=== PATIENT | male | born 1935 | race Caucasian/White ===

== ENCOUNTER → 2016-08-07 | Outpatient (CLI) | payer OTHER ==
[~2016-08-07] MED LIST: IBUP-1428 PO; PRLSR20 PO
--- NOTE | 2016-08-07 09:36 | DIAGNOSTIC IMAGING REPORT ---
FUSION CT SINUSES W/O HISTORY: R51 BmatqkipA10.9 Chronic chsbofcocO16.81 Nasal rguaulcvnyP26.0 TECHNIQUE: Multiaxial CT images of the sinuses were performed and reformatted in the coronal plane without intravenous contrast. Fusion CT protocol was also obtained. COMPARISON STUDY: None. FINDINGS: The frontal sinuses are clear. Partial opacification of the bilateral ethmoid air cells, right greater than left. Mild mucosal thickening within the bilateral sphenoid sinuses. There is a dominant left sphenoid sinus and a hypoplastic right sphenoid sinus. No evidence for carotid canal dehiscence. The lamina papyracea and orbital floors are intact. There is moderate mucosal thickening within the floor of the left maxillary sinus with a 1.7 cm retention cyst. There is mild mucosal thickening within the right maxillary sinus with a 1.3 cm retention cyst. The mastoid air cells are clear. No fluid levels within the paranasal sinuses. Bilateral ostiomeatal units are patent. The right ethmoid roof is approximately 2 mm lower than the left ethmoid roof. The cribriform plates are essentially symmetric. Visualized brain parenchyma and orbits are unremarkable. Pterygopalatine fossa are intact. IMPRESSION: 1. Mild/moderate chronic sinus disease as described above most pronounced at the bilateral mastoid air cells. 2. No fluid levels within the paranasal sinuses. Electronically signed by: Az Costa M.D. 08/07/2016 9:34 AM Dictated Date/Time: 08/07/2016 9:17 AM
== END | disposition home or self-care (01) ==
LOC: C.CTS 08:38
PROVIDERS: ATTEND Hospitalist
DX: J31.0 Chronic rhinitis (principal); J32.9 Chronic sinusitis, unspecified; R09.81 Nasal congestion; R51 Headache

== ENCOUNTER → 2016-08-18 | Outpatient (CLI) | payer OTHER ==
[2016-08-18 13:28] LABS: BASO % 1.1 %; BASO ABS # 0.06 K/uL (0-0.2); COMPLETE YES; EOS % 2.3 %; HEMATOCRIT 45.4 % (42-52); LYMPH % 31.7 %; LYMPH ABS # 1.78 K/uL (1.2-3.4); MEAN CELL VOLUME 88.3 fL (80-100); MEAN CORPUSCULAR HEMOGLOBIN 31.3 pg (25-34); MEAN CORPUSCULAR HGB CONC 35.5 g/dl (32-36); MEAN PLATELET VOLUME 9.4 fL (7.4-10.4); MONO % 7.5 %; NEUT % 57.4 %; PLATELET COUNT 167 K/uL (130-400); RED BLOOD COUNT 5.14 M/uL (4.7-6.1); WHITE BLOOD COUNT 5.62 K/uL (4.8-10.8)
[2016-08-18 13:31] LABS: PROTHROMBIN TIME (PATIENT) 10.6 SECONDS (9.0-12.0)
[2016-08-18 13:33] LABS: POTASSIUM 4.4 mmol/L (3.5-5.1)
== END | disposition home or self-care (01) ==
LOC: C.LABMFLN 08:38
DX: Z01.818 Encounter for other preprocedural examination (principal)

== ENCOUNTER → 2016-08-21 | Day surgery (SDC) | payer OTHER ==
[2016-08-17 14:03] VITALS: Ht 182.9 cm; Wt 94.1 kg
[~2016-08-21] VITALS: Ht 182.9 cm; Wt 94.1 kg
[~2016-08-21] MED LIST changes: +ATROPINE SULFATE 0.1 MG/ML 5ML SYR IV PRN; +CEFAZOLIN 2000 MG/60 ML D5W IV SCH; +DEXAMETHASONE SOD INJ 4 MG/ML VIAL ONE; +EpHEDrine SULFATE INJ 50 MG/ML AMP IV PRN; +EpINEphrine INJ 1MG/ML AMP 1 MG/ML AMP ONE; +FENTANYL CITRATE INJ 50 MCG/1 ML 2 ML VIAL IV PRN; +FENTANYL CITRATE INJ 50 MCG/1 ML 2 ML VIAL ONE; +FLUMAZENIL 0.1 MG/1 ML 10 ML VIAL IV PRN; +GLYCOPYRROLATE INJ 0.2 MG/ML VIAL ONE; +HYDROCODONE/ACETAMOPHEN 5/325MG TAB PO PRN; +LABETALOL HCL IV 5 MG/ML 20ML IV PRN; +LACTATED RINGER'S 1000ML 1,000 ML IV SCH; +LIDOCAINE 4% MPF SOAK 5 ML = 1 DOSE TOP ONE; +LIDOCAINE HCL 2% 2 ML VIAL (20MG/ML) ONE; +LIDOCAINE/EPINEPHRINE 1% INJ 50 ML VIAL ONE; +NALOXONE HCL 0.4 MG/1 ML VIAL/CARP IV PRN; +NEOSTIGMINE METHYLSULFATE 5 MG/5 ML SYR ONE; +ONDANSETRON INJ 2 MG/ML 2 ML VIAL IV PRN; +ONDANSETRON INJ 2 MG/ML 2 ML VIAL ONE; +OXYMETAZOLINE HCL 0.05% NA SPR 15 ML BTL ONE; +OXYMETAZOLINE HCL 0.05% NA SPR 15 ML BTL PRN; +PROMETHAZINE HCL INJ 12.5 MG in SODIUM CHLORIDE 0.9% 50ML 50 ML IV PRN; +ROCURONIUM BROMIDE 10 MG/ML 5 ML VIAL ONE
--- NOTE | 2016-08-21 08:36 | History & Physical Bridge - [place] ---
H&P Re-Evaluation Bridge Note: I have examined the patient, reviewed the History & Physical and in the interval since the performance of the History & Physical I have noted the following changes of clinical significance: No changes noted
--- NOTE | 2016-08-21 10:01 | [facility] Operative Report ---
Operative Report Operative Date Aug 21, 2016. Pre-Operative Diagnosis Chronic Sinusitis, Nasal Septal Deviation, Hypertrophy of Nasal Turbinates Post-Operative Diagnosis Same Procedure(s) Performed Image-Guided Bilateral Endoscopic Sinus Surgery, Bilateral Inferior Turbinate Outfracture And Turbinoplasty Surgeon Dr. Johns Department Mgr Surgeon(s) None Estimated Blood Loss 25 mL Findings 1. POLYPOID MUCOSAL THICKENING B MAX/ETHMOID/SPHENOID SINUSES WITH PURULENCE WITHIN R POSTERIOR ETHMOID SINUSES 2. NON-OBSTRUCTIVE L DNS 3. B ITH Specimens None I attest to the content of the Intraoperative Record and any orders documented therein. Any exceptions are noted below.
--- NOTE | 2016-08-21 10:04 | Discharge Instructions ---
Discharge Instructions Admission Reason for Admission: Chronic Sinusitis, Nasal Septal Deviation, Hypertr Discharge Discharge Diagnosis / Problem: SAME Discharge Goals Goal(s): Improve function Activity Recommendations Activity Limitations: as noted below 1. LIGHT ACTIVITY FOR 2WEEKS 2. NO NOSE BLOWING FOR 2WEEKS 3. NO DRIVING WHILE ON NARCOTICS . Current Hospital Diet Patient's current hospital diet: Discharge Diet Recommended Diet: Regular Diet Procedures Procedures Performed: Image-Guided Bilateral Endoscopic Sinus Surgery, Bilateral Inferior Turbinate Outfracture And Turbinoplasty Pending Studies Studies pending at discharge: no Medical Emergencies . Who to Call and When: Medical Emergencies: If at any time you feel your situation is an emergency, please call 911 immediately. . Non-Emergent Contact Non-Emergency issues call your: Surgeon . . "Provider Documentation" section prepared by Dennis Johns. VTE Core Measure Inpt VTE Proph given/why not?: SCD's
[2016-08-21 10:55] VITALS: TEMP 36.4
--- NOTE | 2016-08-21 11:20 | Anesthesia Progress Nt - [facility] ---
Anesthesia Post Op Note Date & Time Aug 21, 2016 at 11:20 Vital Signs Pain Intensity: 0 Vital Signs Past 12 Hours Date Time Temp Pulse Resp B/P Pulse Ox O2 Delivery O2 Flow Rate FiO2 08/21/16 10:55 36.4 72 16 157/82 94 Room Air 08/21/16 10:44 69 12 94 08/21/16 10:44 69 12 08/21/16 10:43 175/79 08/21/16 10:39 66 16 94 08/21/16 10:39 66 16 08/21/16 10:38 154/81 08/21/16 10:37 36.8 20 167/78 96 Room Air 08/21/16 10:34 64 12 98 08/21/16 10:34 64 12 08/21/16 10:33 167/78 08/21/16 10:30 64 12 97 08/21/16 10:30 65 12 08/21/16 10:28 164/81 08/21/16 10:28 164/81 08/21/16 10:25 67 15 08/21/16 10:25 67 15 08/21/16 10:25 67 15 94 08/21/16 10:25 67 15 94 08/21/16 10:23 153/79 08/21/16 10:23 153/79 08/21/16 10:20 66 14 08/21/16 10:20 66 14 99 08/21/16 10:20 66 14 08/21/16 10:20 66 14 99 08/21/16 10:18 172/78 08/21/16 10:18 172/78 08/21/16 10:15 72 17 08/21/16 10:15 72 17 08/21/16 10:15 78 17 99 08/21/16 10:15 78 17 99 08/21/16 10:13 158/82 08/21/16 10:13 158/82 08/21/16 10:10 66 13 08/21/16 10:10 66 13 97 08/21/16 10:10 66 13 97 08/21/16 10:10 66 13 08/21/16 10:08 166/80 08/21/16 10:08 166/80 08/21/16 10:05 68 9 08/21/16 10:05 68 9 160/76 98 08/21/16 10:05 36.4 68 16 160/76 98 Humidified Oxygen 6 Diffusion Mask 08/21/16 10:05 68 9 08/21/16 10:05 68 9 160/76 98 08/21/16 08:14 36.7 67 16 149/69 96 Room Air Notes Mental Status: alert / awake / arousable, participated in evaluation Pt Amnestic to Procedure: Yes Nausea / Vomiting: adequately controlled Pain: adequately controlled Airway Patency, RR, SpO2: stable & adequate BP & HR: stable & adequate Hydration State: stable & adequate Anesthetic Complications: no major complications apparent
--- NOTE | 2016-08-21 11:23 | OPERATIVE REPORT ---
DATE OF OPERATION: 08/21/2016 PREOPERATIVE AND POSTOPERATIVE DIAGNOSES: 1. Chronic sinusitis. 2. Bilateral inferior turbinate hypertrophy. PROCEDURES: Hand Talk fusion image-guided bilateral functional endoscopic sinus surgery consisting of: 1. Bilateral maxillary antrostomies. 2. Bilateral complete ethmoidectomies. 3. Bilateral sphenoidotomies. 4. Right frontal sinusotomy. 5. Bilateral inferior turbinate outfracture and turbinoplasties. SURGEON: Dr. Johns. ANESTHESIA: General endotracheal. ESTIMATED BLOOD LOSS: 25 mL. FINDINGS: 1. Polypoid mucosal thickening involving the bilateral maxillary, ethmoid and sphenoid sinuses as well as the right frontal sinus. 2. Purulence within the right posterior ethmoid sinus. 3. Bilateral inferior turbinate hypertrophy. 4. Very mild left anterior septal deviation, which was nonobstructive. SPECIMENS: None. COMPLICATIONS: None. INDICATIONS: The patient is a 80-year-old male with the above-mentioned history, which has been unresponsive to maximum medical therapy including systemic antibiotics and steroids. He presents for the above-mentioned procedures on an outpatient elective basis. DETAILS OF PROCEDURE: After informed consent had been obtained from the patient, the patient was wheeled to the operating room and placed on the operating table in the supine position. Monitors were placed. After induction of general endotracheal anesthesia the patient was prepped in the usual fashion for image-guided endoscopic sinus surgery. The Hand Talk fusion navigation headset was placed over the forehead and was registered, calibrated and verified and used throughout the case. Lidocaine and epinephrine pledgets were placed in the bilateral nasal cavities and pressure applied. After allowing adequate time for vasoconstriction and anesthesia the left-sided pledgets were removed and a Tipton elevator was used to medialize the left middle turbinate. The middle turbinate and lateral nasal wall were injected with 1% lidocaine with 1:100,000 epinephrine. Lidocaine and epinephrine pledget was then placed into the left middle meatus. The right side was then addressed in a similar fashion. The left-sided pledgets were removed and a Tipton elevator was used to incise the uncinate process and the uncinate process was removed using straight Marvel-Cut forceps and powered instrumentation. The natural ostia of the left maxillary sinus was identified and this was enlarged anteriorly, inferiorly, and posteriorly using backbiting forceps and powered instrumentation. A complete ethmoidectomy was then performed using powered instrumentation. Using a transnasal approach to the sphenoid sinus, the left sphenoid sinus was entered and the natural ostia was enlarged medially and inferiorly using powered instrumentation. Of note, there was polypoid mucosal thickening involving the left maxillary, ethmoid and sphenoid sinuses. On the CT scan, the left frontal sinus was normal and therefore this was left undisturbed. Lidocaine and epinephrine pledget was then placed into the left ethmoid sinus. The right side was then addressed. This was addressed in a similar fashion as described on the left-hand side with intraoperative findings of polypoid mucosal thickening involving all the paranasal sinuses, but purulence within the posterior ethmoid air cells. Using a curved frontal sinus suction, the right frontal sinus was cannulated and initially a #6 frontal sinus balloon was inserted, but this was difficult to insert in the same fashion as the curved frontal sinus suction and therefore it was not inflated. Rather using powered instrumentation polypoid tissue was removed from the right frontal recess in order to perform a right frontal sinusotomy. The septum was then inspected. There was a small amount of left-sided septal deviation anteriorly, which was thought to be nonobstructive and therefore septoplasty was not performed. A Ha elevator was used to infracture and subsequently outfracture the inferior turbinates bilaterally. The inferior turbinates were injected with 1% lidocaine with 1:100,000 epinephrine. Using a 2.0 mm turbinate blade and powered instrumentation, bilateral inferior turbinoplasties were performed. The sinonasal cavities were then suctioned. Merogel was then placed in the bilateral ethmoid cavity/middle meati. An orogastric tube was placed and the stomach was suctioned free of air and stomach contents. This marked the end of the case. The patient tolerated the procedure well and there are no apparent complications. The patient was extubated and transferred to the recovery room in stable condition. I attest to the content of the Intraoperative Record and any orders documented therein. Any exceptio ns are noted below.
[2016-08-21 11:32] VITALS: BP 160/88; PULSE 67; O2SAT 94
== END | disposition home or self-care (01) ==
LOC: X.SURG 07:48
DX: J32.9 Chronic sinusitis, unspecified (principal); J34.3 Hypertrophy of nasal turbinates; J34.2 Deviated nasal septum; I10 Essential (primary) hypertension; Z98.890 Other specified postprocedural states

== ENCOUNTER → 2017-04-27 | Outpatient (CLI) | payer OTHER ==
[~2017-04-27] MED LIST changes: -ATROPINE SULFATE 0.1 MG/ML 5ML SYR IV PRN; -CEFAZOLIN 2000 MG/60 ML D5W IV SCH; -DEXAMETHASONE SOD INJ 4 MG/ML VIAL ONE; -EpHEDrine SULFATE INJ 50 MG/ML AMP IV PRN; -EpINEphrine INJ 1MG/ML AMP 1 MG/ML AMP ONE; -FENTANYL CITRATE INJ 50 MCG/1 ML 2 ML VIAL IV PRN; -FENTANYL CITRATE INJ 50 MCG/1 ML 2 ML VIAL ONE; -FLUMAZENIL 0.1 MG/1 ML 10 ML VIAL IV PRN; -GLYCOPYRROLATE INJ 0.2 MG/ML VIAL ONE; -HYDROCODONE/ACETAMOPHEN 5/325MG TAB PO PRN; -IBUP-1428 PO; -LABETALOL HCL IV 5 MG/ML 20ML IV PRN; -LACTATED RINGER'S 1000ML 1,000 ML IV SCH; -LIDOCAINE 4% MPF SOAK 5 ML = 1 DOSE TOP ONE; -LIDOCAINE HCL 2% 2 ML VIAL (20MG/ML) ONE; -LIDOCAINE/EPINEPHRINE 1% INJ 50 ML VIAL ONE; -NALOXONE HCL 0.4 MG/1 ML VIAL/CARP IV PRN; -NEOSTIGMINE METHYLSULFATE 5 MG/5 ML SYR ONE; -ONDANSETRON INJ 2 MG/ML 2 ML VIAL IV PRN; -ONDANSETRON INJ 2 MG/ML 2 ML VIAL ONE; -OXYMETAZOLINE HCL 0.05% NA SPR 15 ML BTL ONE; -OXYMETAZOLINE HCL 0.05% NA SPR 15 ML BTL PRN; -PROMETHAZINE HCL INJ 12.5 MG in SODIUM CHLORIDE 0.9% 50ML 50 ML IV PRN; -ROCURONIUM BROMIDE 10 MG/ML 5 ML VIAL ONE
[2017-04-27 17:46] LABS: BLOOD UREA NITROGEN 19 mg/dl (7-18); BUN/CREATININE RATIO 13.3 (10-20); CALCIUM 8.5 mg/dl (8.5-10.1); CARBON DIOXIDE 27 mmol/L (21-32); CHLORIDE 110 mmol/L (98-107); GLUCOSE 95 mg/dl (70-99); POTASSIUM 4.6 mmol/L (3.5-5.1); SODIUM 142 mmol/L (136-145)
== END | disposition home or self-care (01) ==
LOC: C.LABMFLN 11:53
PROVIDERS: ATTEND Family Medicine
DX: I10 Essential (primary) hypertension (principal)

== ENCOUNTER → 2018-02-25 | Outpatient (CLI) | payer OTHER ==
[2018-02-25 18:30] LABS: BLOOD UREA NITROGEN 18 mg/dl (7-18); CALCIUM 8.2 mg/dl (8.5-10.1); CARBON DIOXIDE 25 mmol/L (21-32); CREATININE 1.47 mg/dl (0.60-1.40); GLUCOSE 101 mg/dl (70-99); POTASSIUM 4.4 mmol/L (3.5-5.1); SODIUM 140 mmol/L (136-145)
== END | disposition home or self-care (01) ==
LOC: C.LABMFLN 11:02
PROVIDERS: ATTEND Family Medicine
DX: I10 Essential (primary) hypertension (principal)